=== PATIENT | female | born 1940 | race Caucasian/White ===

== ENCOUNTER 2017-12-27 05:00 | Day surgery (SDC) | payer MEDICARE, OTHER ==
[2017-12-26 08:44] LABS: BASOPHILS 0.6 % (0-2); EOSINOPHILS 1.7 % (0-7); HEMATOCRIT 40.4 % (36.0-48.0); HEMOGLOBIN 14.2 g/dL (12-16); LYMPHOCYTES 28.5 % (15-50); MCH 32.4 pg (26.0-34.0); MCHC 35.1 g/dL (31.0-37.0); MCV 92.2 fL (80.0-100.0); MONOCYTES 11.2 % (2-11); PLATELET COUNT 278 10x3/uL (130-400); RBC 4.38 10x6/uL (4.00-5.40); RDW 13.7 % (11.5-14.5); WBC 6.9 10x3/uL (4.8-10.8)
[~2017-12-27] VITALS: Ht 162.6 cm; Wt 49.9 kg
--- NOTE | ~2017-12-27 | OP ---
PATIENT NAME: BRADFORD HOLLY MEDICAL RECORD: [id number] :36 LOCATION:D.OPS ADMISSION DATE: SURGEON: NACHO MCGARRY DPM DATE OF OPERATION: 12/27/2017 PREOPERATIVE DIAGNOSES: 1. HAV, left foot. 2. Instability, left first met cuneiform joint. 3. Plantar plate rupture, left second MPJ. 4. Hammertoe deformity, left second PIPJ. POSTOPERATIVE DIAGNOSES: 1. HAV, left foot. 2. Instability, left first met cuneiform joint. 3. Plantar plate rupture, left second MPJ. 4. Hammertoe deformity, left second PIPJ. PROCEDURES: 1. Pak bunionectomy, left foot. 2. First met cuneiform joint fusion, left foot. 3. Radha osteotomy, left second metatarsal. 4. Plantar plate repair, left second MPJ. 5. PIPJ fusion, left second digit. ANESTHESIA: General with local infiltrate utilizing 20 mL of lidocaine and Marcaine 50:50 mix around the first and second ray. HEMOSTASIS: Left thigh tourniquet at 350 mmHg. PREOPERATIVE DETAILS: The patient was taken to the OR and placed on the operating table in a supine position. This was followed by induction of general anesthesia and infiltration of local anesthetic. The left extremity was then prepped and draped in usual aseptic technique followed by exsanguination of extremity and inflation of tourniquet. PROCEDURE #1: Pak bunionectomy, left foot: A 15-blade was used to create an incision from the dorsal aspect of the medial cuneiform to the base of the proximal phalanx of the hallux. The incision was deepened down through subcutaneous tissue being sure to avoid vital structures. Dissection was carried down to the first MPJ where an inverted L capsulotomy was performed. The medial capsular flap was reflected and the head of the first metatarsal was delivered. A sagittal saw was used to resect the medial eminence. Attention was then directed to the first interspace where a lateral release was performed. PROCEDURE #2: First met cuneiform joint fusion: Dissection was carried down to the periosteum and the first met cuneiform joint was exposed and freed. A sagittal saw was then used to resect the joint. Temporary fixation was placed, a 5-hole plate with 1 hole one screw crossing the plate was placed over the fusion site with excellent rigid internal fixation. C-arm was used to verify good placement and alignment. Wound was flushed. The capsule and periosteum were closed with 2-0 Vicryl, the subcutaneous tissue with 4-0 Rapide and the skin was closed with 4-0 Rapide in a subcuticular technique followed by Dermabond. PROCEDURE #3: Radha osteotomy, left second metatarsal: A 15-blade was used to OPERATIVE REPORT [id number] BRADFORD HOLLY create an incision on the dorsal aspect of the second metatarsal up on top of the second digit to the PIPJ. The incision was deepened down through subcutaneous tissue being sure to avoid all vital structures. Dissection was carried down to the extensor longus tendon, which was transected in a Z fashion and freed from the dorsal aspect of the second MPJ. A linear capsular incision was made over the second MPJ freeing the second metatarsal head. McGlamry scoop elevator was used to free the plantar structures. At this time, a sagittal saw was used to create an osteotomy to the second metatarsal starting the dorsal aspect of the cartilaginous surface from dorsal distal to plantar proximal through and through. The Radha osteotomy was completed and the capital fragment was pushed posterior in preparation for the plantar plate repair. The capital fragment having been pushed proximal was fixated temporarily with a K-wire. A second K-wire was then placed in the dorsal aspect of the mid shaft of the proximal phalanx of the second digit. PROCEDURE #4: Plantar plate repair, left second MPJ: Upon initial inspection after placing a wire retractor over the 2 wires and distracting the joint, initial inspection showed that there was a significant tear in the lateral aspect of the plantar plate. A 15-blade was used to free the rest of the plate from the plantar and medial aspect of the base of the proximal phalanx of the second digit. Once that was achieved, a scorpion passer was used to throw 2 sutures more laterally based in the plantar plate up through. Two small drill holes were then made in the base of the second digit proximal phalanx and the suture was passed up through those 2 holes. The temporary fixation with the K-wires were removed out of the second metatarsal and the proximal phalanx of the second digit with the Radha osteotomy now being put back into proper position with about 1-2 mm shortening with no plantar flexion with just translocated proximally approximately 2 mm. Two popoff screws were used to fixate the osteotomy. At this time, with the second digit held in plantarflexion and slight lateral deviation, the suture FiberWire passed up through the base of proximal phalanx was tied surgeon's knots giving excellent repair of the plantar plate. PROCEDURE #5: PIPJ fusion, left second digit: The extensor longus tendon was freed from the dorsal aspect of the PIPJ. A sagittal saw was used to resect the head of the proximal phalanx and the base of middle phalanx. A drill hole was made in both followed by itana and a bone graft was placed in the proximal phalanx first and the middle phalanx was then brought up over the top and compressed onto the bone graft, giving excellent coaptation of the fusion site and rigid fixation. The wound was flushed. The capsule was repaired of the second MPJ with 2-0 Vicryl followed by repair of the extensor longus tendon with 4-0 Rapide followed by closure of the subcutaneous tissue with 4-0 Rapide and the skin was closed with 4-0 Rapide in a subcuticular technique followed by Dermabond. Adaptic, 4 x 4 and Conform were used to dress the wounds followed by application of modified Woodard compression dressing. Tourniquet was deflated. POSTOPERATIVE DETAILS: The patient tolerated the procedure well and left the OR with vital signs stable and vascular status at preoperative levels. The patient was transported to recovery per anesthesia in stable condition. TRANSINT:[id number] Voice Confirmation ID: [id number] DOCUMENT ID: [id number] OPERATIVE REPORT [id number] BRADFORD HOLLY MCKAY DPM at 0848 CC: [id number] DICTATION DATE: 12/27/17913 [employer] MANAGER: 12/27/17 0938 [facility] 12/27/17 [id number] [place] [address]
[~2017-12-27 05:00] MED LIST: AREDS PRESERVISION PO; CALTRATE+D3 PL1 EACH PO; CENTRUM SILVER1 EAC3 PO; PREMARIN0.625 MG PO
[2017-12-27 06:11] VITALS: BP 124/73; Ht 162.6 cm; Wt 49.9 kg
== END 2017-12-27 11:05 | disposition home or self-care (01) ==
LOC: D.OPS 05:00 → D.PAN 07:00 → D.OPS 07:00
PROVIDERS: Anesthesiology
DX: M20.12 Hallux valgus (acquired), left foot (principal); M25.375 Other instability, left foot; S96.812A Strain of other specified muscles and tendons at ankle and foot level, left foot, initial encounter; M20.42 Other hammer toe(s) (acquired), left foot

== ENCOUNTER 2019-02-22 08:00 | Outpatient (CLI) | payer MEDICARE, BC ==
[2017-12-27 06:11] VITALS: BMI 18.9
== END 2019-02-22 23:59 | disposition home or self-care (01) ==
LOC: D.MAMMO 08:00
PROVIDERS: ATTEND Family Medicine
DX: Z12.31 Encounter for screening mammogram for malignant neoplasm of breast (principal)